=== PATIENT | female | born 1975 | race Caucasian/White ===

== ENCOUNTER 2024-05-23 19:17 | Outpatient (REF) | payer OTHER, BC, SELFPAY | END 2024-05-23 19:18 | disposition home or self-care (01) | LOC: LAB 19:17 | PROVIDERS: Visit Provider Physician Assistant | DX: Z01.419 Encounter for gynecological examination (general) (routine) without abnormal findings (principal) | CPT/HCPCS: 87624; 88175 ==

== ENCOUNTER 2025-01-12 08:01 | Outpatient (OUT) | payer OTHER, BC, SELFPAY ==
--- NOTE | 2025-01-12 | MM_ITS ---
Patient Name: KARYN LITTLE MR#: [id number] : 1975 Exam Date: 01/12/2025 Ordering Doctor: DR Marcelo Hough . RADIOLOGY REPORT PROCEDURE: MM TOMOSYNTHESIS SCREENING BI COMPARISON: MG MAMM MICHAEL DIAG W CAD DIG, 08/28/2013. INDICATIONS: Michael Screening Mammogram Calculator Name NCI Breast Cancer Risk Assessment Tool 5 Year Breast Cancer Risk 0.90% Lifetime Breast Cancer Risk 8.00% Personal Breast Cancer No Personal Ovarian Cancer No Treatments None Family Cancers Aunt-maternal with breast cancer at age ~39; Aunt-maternal with breast cancer at age ~38; Father with lung cancer at age 48; Mother with cervical cancer at age 37. LOCATION: [facility] BREAST COMPOSITION: The breasts are heterogeneously dense,which may obscure small masses. FINDINGS: RIGHT BREAST: No significant suspicious finding. LEFT BREAST: No significant suspicious finding. DIAGNOSTIC CATEGORY 1--NEGATIVE. RECOMMENDATIONS: ROUTINE MAMMOGRAM AND CLINICAL EVALUATION IN 12 MONTHS. PLEASE NOTE: A NORMAL MAMMOGRAM DOES NOT EXCLUDE THE POSSIBILITY OF BREAST CANCER. A CLINICALLY SUSPICIOUS PALPABLE LUMP SHOULD BE BIOPSIED. Dictated by: Zia Bear DO on 01/12/2025 at 16:06 Approved by: Zia Bear DO on 01/12/2025 at 16:10
== END 2025-01-12 08:02 | disposition home or self-care (01) ==
LOC: MAMMO 08:05
PROVIDERS: Visit Provider Obstetrics & Gynecology
DX: Z12.31 Encounter for screening mammogram for malignant neoplasm of breast (principal); Z80.3 Family history of malignant neoplasm of breast; Z80.1 Family history of malignant neoplasm of trachea, bronchus and lung; Z80.8 Family history of malignant neoplasm of other organs or systems
CPT/HCPCS: 77063; 77067

== ENCOUNTER 2025-06-11 20:15 | Outpatient (REF) | payer OTHER, BC, SELFPAY ==
--- OUTSIDE RECORDS SUMMARY | 2025-06-11 20:19 | XMS_ITS | CCD ---
Author Organization [facility] Care Team Providers [place] Lifeguard Name Role Phone FABIAN, DR NETO Leyva Admitting Unavailable WEST, DR NETO Leyva Attending Unavailable LUPE, DR MUÑOZ Primary Care Unavailable WEST, DR NETO Leyva Consulting Unavailable MARGARITA, DR YU Admitting Unavailable MARGARITA, DR YU Attending Unavailable LUPE, DR MUÑOZ Primary Care Unavailable MARGARITA, DR YU Consulting Unavailable MD Tylor Gilmore Attending Provider PADMINI ANDRADE Attending Unavailable TYLOR MERAZ Attending Unavailable PADMINI ANDRADE Referring Unavailable SERINA VICTORIA Attending Unavailable DEIRDRE Leyva, TYLOR Attending Unavailable Tylor Gilmore Attending Unavailable Tylor Gilmore Admitting Unavailable Padmini Andrade MD Primary Care Provider Johnathon Kurtz PA-C Primary Care Provider JOHNATHON KURTZ Attending Unavailable JOHNATHON KURTZ Primary Care Unavailable ZHANE UMANZOR Attending Unavailable JOHNATHON KURTZ Primary Care Unavailable JOHNATHON KURTZ Attending Unavailable JOHNATHON KURTZ Primary Care Unavailable Allergies Allergy Classification Reported Allergen(s) Allergy Type Date of Onset Reaction(s) Facility (1 source) Ibuprofen Drug Allergy 01-15-2017 [facility] Repository (4 sources) Ibuprofen; Translations: [IBUPROFEN] Drug Allergy 01-15-2017 [facility] Medications Current Medications Medication Drug Class(es) Dates Sig (Normalized) Sig (Original) 24 hr amphetamine aspartate 5 mg / amphetamine sulfate 5 mg / dextroamphetamine saccharate 5 mg / dextroamphetamine sulfate 5 mg extended release oral capsule (2 sources) Central Nervous System Stimulant Start: 04-03-2025 End: 06-02-2025 take 1 capsule by mouth once daily in the morning amphetamine-dextro amphetamine XR (Adderall XR) 20 mg 24 hr capsule Indications: Attention or concentration deficit Take 1 capsule (20 mg) by mouth once daily in the morning. Do not crush or chew. OARRS reviewed. Void script and RF 30 days from written date 30 capsule 05/03/2025 06/02/2025 Active busPIRone hydrochloride 5 mg oral tablet (3 sources) Start: 03-01-2025 take 1 tablet by mouth three times daily as needed for anxiety busPIRone (Buspar) 5 mg tablet Indications: Situational anxiety Take 1 tablet (5 mg) by mouth 3 times a day as needed (anxiety). 90 tablet 03/01/2025 Active Problems Active Problems Problem Classification Problem Date Documented Date Episodic/Chronic Administrative/social admission (1 source) First encounter by subject; Translations: [Persons encountering health services in other specified circumstances] 03-01-2025 Episodic Anxiety disorders (4 sources) Anxiety; Translations: [Other specified anxiety disorders] Onset: 03-01-2025 03-01-2025 Chronic Menopausal disorders (7 sources) Perimenopausal state; Translations: [Menopausal and female climacteric states] Onset: 03-09-2024 03-09-2024 Chronic Mood disorders (6 sources) Atypical depressive disorder; 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 03-06-2024 Chronic Other aftercare (2 sources) Patient encounter status; Translations: [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] 04-02-2025 Episodic Other aftercare (2 sources) Other prison (current) drug therapy; Translations: [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] Onset: 04-02-2025 Episodic Other nervous system disorders (2 sources) Disturbance of attention; Translations: [Attention and concentration deficit] 04-02-2025 Chronic Other nervous system disorders (2 sources) Attention and concentration deficit; Translations: [Attention and concentration deficit] Onset: 04-02-2025 Chronic Other nervous system disorders (1 source) Impaired cognition; Translations: [Other symptoms and signs involving cognitive functions and awareness] 03-01-2025 Episodic Past or Other Problems Problem Classification Problem Date Documented Da te Episodic/Chronic Immunizations and screening for infectious disease (1 source) Encounter for screening for human papillomavirus (HPV); Translations: [ENC SCREENING HUMAN PAPILLOMAVIRUS] Onset: 07-05-2022 Episodic Malaise and fatigue (2 sources) Fatigue; Translations: [Other fatigue] Onset: 03-09-2024 03-09-2024 Episodic Other gastrointestinal disorders (2 sources) Stool DNA-based colorectal cancer screening positive; Translations: [Other fecal abnormalities] Onset: 05-09-2024 05-09-2024 Episodic Other screening for suspected conditions (not mental disorders or infectious disease) (6 sources) Encounter for screening for malignant neoplasm of cervix; Translations: [Patient encounter status] Onset: 07-01-2022 Episodic Unclassified (1 source) Onset: 05-03-2025 05-03-2025 Results Test Name Value Interpretation Reference Range Facility DRUG MONITOR, THIAGO, QN, URI NEon 04-05-2025 Alphahydroxyalprazolam Negative Normal <25 [facility] Comment on above: Performed By: #### 3 9394, 77163, 25521, 44105, 84224, 63514, 26993, 39791 #### [facility] [place] [address] Roll Skinner: Tk Oneal MD Alphahydroxymidazolam Negative Normal <[address] [facility] Comment on above: Performed By: #### 3 9394, 10840, 54072, 87936, 79514, 60196, 78202, 32671 #### [facility] [place] [address] Roll Skinner: Tk Oneal MD Alphahydroxytriazolam Negative Normal <[address] [facility] Comment on above: Performed By: #### 3 9394, 93797, 82794, 34400, 35409, 62186, 77706, 57777 #### [facility] [place] [address] Roll Skinner: Tk Oneal MD Aminoclonazepam Negative Normal <25 [facility] Comment on above: Performed By: #### 3 9394, 73214, 51917, 39708, 38512, 37193, 19552, 85271 #### [facility] [address] Roll Skinner: Tk Oneal MD Benzodiazepines Comments Normal [facility] Comment on above: Result Comment: See LDT Notes Performed By: #### 3 9394, 37046, 04213, 44549, 99230, 14301, 11307, 79658 #### [facility] of [address] , [address] [place] [address] Roll Skinner: Tk Oneal MD Hydroxyethylflurazepam Negative Normal <50 [facility] Comment on above: Performed By: #### 3 9394, 15072, 41861, 29380, 43224, 80366, 33988, 29982 #### [facility] of [place] [address] Roll Skinner: Tk Oneal MD Lorazepam Negative Normal <50 [facility] Comment on above: Performed By: #### 3 9394, 12432, 79060, 05112, 60907, 97045, 43598, 30265 #### [facility] of [place] [address] Roll Skinner: Tk Oneal MD Nordiazepam Negative Normal <50 [facility] Comment on above: Performed By: #### 3 9394, 89551, 20890, 27710, 20473, 61641, 72953, 28794 #### [facility] of [place] [address] Roll Skinner: Tk Oneal MD Oxazepam Negative Normal <50 [facility] Comment on above: Performed By: #### 3 9394, 11360, 72940, 90357, 68032, 54000, 50592, 90052 #### [facility] [address] [place] [address] Roll Skinner: Tk Oneal MD Temazepam Negative Normal <50 [facility] Comment on above: Performed By: #### 3 9394, 07937, 72295, 61636, 20814, 10613, 17584, 47752 #### [facility] of [address], [address] [place] [address] Roll Skinner: Tk Oneal MD DRUG MONITOR, COCAINE METAB, W/CONF, URINEon 04-05-2025 Cocaine Metabolite Negative Normal <150 [facility] Comment on above: Performed By: #### 3 9394, 52274, 15028, 30274, 25437, 02903, 29295, 01573 #### [facility] of [place] [address] Roll Skinner: Tk Oneal MD DRUG MONITOR, FENTANYL, QN, URINEon 04-05-2025 Fentanyl Normal [facility] Comment on above: Performed By: #### 3 9394, 29177, 26686, 78480, 79043, 04315, 48938, 79139 #### [facility] of [place] [address] Roll Skinner: Tk Oneal MD Fentanyl Comments Normal [facility] Comment on above: Performed By: #### 3 9394, 28879, 60201, 68077, 85516, 46697, 32018, 60510 #### [facility] of [place] [address] Roll Skinner: Tk Oneal MD medMATCH Fentanyl Normal [facility] Comment on above: Performed By: #### 3 9394, 51567, 73570, 10164, 62146, 06887, 05032, 53030 #### [facility] of [place] [address] Roll Skinner: Tk Oneal MD medMATCH Norfentanyl Normal [facility] Comment on above: Performed By: #### 3 9394, 16295, 35246, 37756, 27959, 92832, 93809, 54891 #### [facility] of [place] [address] Roll Skinner: Tk Oneal MD Norfentanyl Normal [facility] Comment on above: Performed By: #### 3 9394, 93851, 73713, 22275, 55066, 64564, 47275, 91045 #### [facility] of [address] [place] [address] Roll Skinner: Tk Oneal MD DRUG MONITOR, HEROIN METAB, QN, URINEon 04-05-2025 6 Acetylmorphine Normal [facility] Comment on above: Performed By: #### 3 9394, 29525, 65899, 19046, 02076, 19895, 44211, 33512 #### [facility] of [place] [address] Roll Skinner: Tk Oneal MD Heroin Metab Comments Normal [facility] Comment on above: Performed By: #### 3 9394, 21065, 07515, 49613, 00853, 80567, 72329, 94824 #### [facility] of [place] [address] Roll Skinner: Tk Oneal MD medMATCH 6 Acetylmorph Normal [facility] Comment on above: Performed By: #### 3 9394, 00635, 05415, 85337, 27935, 68177, 95471, 28525 #### [facility] of [place] [address] Roll Skinner: Tk Oneal MD DRUG MONITOR, MARIJUANA META B, W/CONF, URINEon 04-05-2025 Marijuana Metabolite Negative Normal <20 [facility] Comment on above: Performed By: #### 3 9394, 28012, 98301, 49614, 75818, 14395, 18998, 62169 #### [facility] [place] [address] Roll Skinner: Tk Oneal MD DRUG MONITOR, METHADONE META B, QN, URINEon 04-05-2025 EDDP Negative Normal <100 [facility] Comment on above: Performed By: #### 3 9394, 55536, 70582, 60889, 30708, 62140, 92624, 46940 #### [facility] of [address], [address] [place] [address] Roll Skinner: Tk Oneal MD Methadone Negative Normal <100 [facility] Comment on above: Performed By: #### 3 9394, 84831, 20712, 68157, 21142, 27104, 19726, 71090 #### [facility] of [place] [address] Roll Skinner: Tk Oneal MD Methadone Comments Normal [facility] Comment on above: Result Comment: See LDT Notes Performed By: #### 3 9394, 30595, 10885, 02659, 82802, 29544, 36532, 88075 #### [facility] [place] [address] Roll Skinner: Tk Oneal MD DRUG MONITOR, OPIATES EXPAND ED, QN, URINEon 04-05-2025 Codeine Negative Normal <50 [facility] Comment on above: Performed By: #### 3 9394, 28740, 19125, 65034, 15705, 12652, 38267, 46722 #### [facility] of [place] [address] Roll Skinner: Tk Oneal MD Hydrocodone Negative Normal <50 [facility] Comment on above: Performed By: #### 3 9394, 12400, 74226, 46734, 06908, 11875, 52586, 10672 #### [facility] [place] [address] Roll Skinner: Tk Oneal MD Hydromorphone Negative Normal <50 [facility] Comment on above: Performed By: #### 3 9394, 66657, 83252, 02554, 11833, 85956, 66734, 80902 #### [facility] of [place] [address] Roll Skinner: Tk Oneal MD Morphine Negative Normal <50 [facility] Comment on above: Performed By: #### 3 9394, 94957, 38324, 53119, 68293, 19241, 49249, 92812 #### [facility] [place] [address] Roll Skinner: Tk Oneal MD Norhydrocodone Negative Normal <50 [facility] Comment on above: Performed By: #### 3 9394, 12204, 26934, 21695, 14445, 90612, 27513, 38453 #### [facility] of [address], [address] [place] [address] Roll Skinner: Tk Oneal MD Noroxycodone Negative Normal <50 [facility] Comment on above: Performed By: #### 3 9394, 05262, 16315, 71726, 89324, 67397, 87821, 03871 #### [facility] of [address], [address] [place] [address] Roll Skinner: Tk Oneal MD Opiates Comments Normal [facility] Comment on above: Result Comment: See LDT Notes Performed By: #### 3 9394, 87304, 89028, 45176, 22113, 99313, 92694, 43414 #### [facility] of [address], [address] [place] [address] Roll Skinner: Tk Oneal MD Oxycodone Negative Normal <50 [facility] Comment on above: Performed By: #### 3 9394, 25379, 99671, 50410, 41099, 86985, 91265, 42195 #### [facility] of [address], [address] [place] [address] Roll Skinner: Tk Oneal MD Oxycodone Comments Normal [facility] Comment on above: Result Comment: See LDT Notes Performed By: #### 3 9394, 43779, 42921, 15636, 81056, 77640, 58661, 46104 #### [facility] of [address], [address] [place] [address] Roll Skinner: Tk Oneal MD Oxymorphone Negative Normal <50 [facility] Comment on above: Performed By: #### 3 9394, 75034, 92126, 57029, 84232, 17968, 29246, 93980 #### [facility] of [address], [address] [place] [address] Roll Skinner: Tk Oneal MD DRUG MONITOR, PCP, W/CONF, U RINEon 04-05-2025 Phencyclidine Negative Normal <25 [facility] Comment on above: Performed By: #### 3 9394, 96732, 44226, 32069, 26054, 97446, 30620, 81190 #### [facility] of [address], [address] [place] [address] Roll Skinner: Tk Oneal MD DRUG MONITOR, TRAMADOL, QN, URINEon 04-05-2025 Desmethyltramadol Negative Normal <100 [facility] Comment on above: Performed By: #### 3 9394, 34688, 14162, 51335, 37086, 70552, 63659, 70994 #### [facility] of [place] [address] Roll Skinner: Tk Oneal MD Tramadol Negative Normal <100 [facility] Comment on above: Performed By: #### 3 9394, 85385, 48026, 15716, 44462, 66046, 16005, 14823 #### [facility] of [place] [address] Roll Skinner: Tk Oneal MD Tramadol Comments Normal [facility] Comment on above: Result Comment: See LDT Notes Performed By: #### 3 9394, 50364, 16244, 09846, 56391, 88453, 13043, 82968 #### [facility] of [place] [address] Roll Skinner: Tk Oneal MD DRUG MONITOR, ZOLPIDEM, QN, URINEon 04-05-2025 medMATCH Zolpidem Normal [facility] Comment on above: Performed By: #### 3 9394, 35595, 03847, 00370, 68143, 80583, 14647, 93587 #### [facility] of [address], [address] [place] [address] Roll Skinner: Tk Oneal MD medMATCH Zolpidem Metab Normal [facility] Comment on above: Performed By: #### 3 9394, 10545, 43829, 04785, 05426, 28641, 53247, 96468 #### [facility] of [place] [address] Roll Skinner: Tk Oneal MD Zolpidem Normal [facility] Comment on above: Performed By: #### 3 9394, 58165, 52559, 35005, 33682, 30499, 05949, 12020 #### [facility] of [address], [address] [place] [address] Roll Skinner: Tk Oneal MD Zolpiedy Comments Normal [facility] Comment on above: Performed By: #### 3 9394, 21835, 76898, 53500, 50031, 62761, 71890, 94689 #### [facility] of [place] [address] Roll Skinner: Tk Oneal MD Zolpidem Metabolite Normal [facility] Comment on above: Performed By: #### 3 9394, 37794, 30923, 20605, 01605, 41216, 94930, 68315 #### [facility] of [place] [address] Roll Skinner: Tk Oneal MD DRUG MONITOR,AMPHETAMINE, W/ CONF, URINEon 04-05-2025 Amphetamines Negative Normal <500 [facility] Comment on above: Performed By: #### 3 9394, 58717, 44075, 62154, 12565, 03607, 83387, 05354 #### [facility] of [address], [address] [place] [address] Roll Skinner: Tk Oneal MD DRUG MONITOR,BARBITURATE, W/ CONF, URINEon 04-05-2025 Barbiturates Negative Normal <300 [facility] Comment on above: Performed By: #### 3 9394, 08996, 80997, 88908, 61580, 35740, 37518, 06111 #### [facility] of [place] [address] Roll Skinner: Tk Oneal MD DRUG MONITORING TEMPLATEon 0 04-05-2025 Notes and Comments PRELIM Normal [facility] Comment on above: Result Comment: This drug testing is for medical treatment only. Analysis was performed as non-forensic testing and these results should be used only by healthcare providers to render diagnosis or treatment, or to monitor progress of medical conditions. LDT Notes: Confirmation tests were developed and their analytical performance characteristics have been determined by [facility]. It has not been cleared or approved by the FDA. This assay has been validated pursuant to the CLIA regulations and is used for clinical purposes. Healthcare Providers needing Interpretation assistance, please contact us at [phone] ( ) M-F, 8am to 10pm EST Performed By: #### 3 9394, 16938, 05869, 03003, 10684, 00619, 02044, 17303 #### [facility] [address], [address] [place] [address] Roll Skinner: Tk Oneal MD Patient Historical Report PENDING Normal [facility] Comment on above: Performed By: #### 3 9394, 47018, 79809, 49465, 04217, 66302, 21804, 67619 #### [facility] [address], [address] [place] [address] Roll Skinner: Tk Oneal MD SPECIMEN VALIDITY TEST PANEL on 04-05-2025 Creatinine [Mass/Vol] 156.8 mg/dL Normal > or = 20.0 [facility] Comment on above: Performed By: #### 3 9394, 10460, 07351, 75980, 23008, 02695, 31465, 83385 #### [facility] [address], [address] [place] [address] Roll Skinner: Tk Oneal MD Oxidant Negative Normal <200 [facility] Comment on above: Performed By: #### 3 9394, 88977, 87559, 64010, 46226, 47925, 58310, 89702 #### [facility] [address], [address] [place] [address] Roll Skinner: Tk Oneal MD pH (Bld) 7.2 [pH] Normal 4.5-9.0 [facility] Comment on above: Performed By: #### 3 9394, 02853, 12463, 75259, 76341, 44867, 64943, 62105 #### [facility] [address] [facility], [address] [place] [address] Roll Skinner: Tk Oneal MD MM TOMOSYNTHESIS SCREENING B Ion 01-12-2025 [place] [address] Mammography Report Signed Patient: KARYN LITTLE MR#: [id number] : 1975 Acct:[id number] Age/Sex: 49 / F ADM Date: 01/12/25 Loc: MAMMO Attending Dr: Marcelo Hough D.O. Ordering Physician: Marcelo Hough D.O. Results: Date of Service: 01/12/25 Follow Up: Procedure(s): MM tomosynthesis screening BI Accession Number(s): [id number] cc: Marcelo Hough D.O.; Physician,Non-Staff [place] Patient Name: KARYN LITTLE MR#: [id number] : 1975 Exam Date: 01/12/2025 Ordering Doctor: DR Marcelo Hough . RADIOLOGY REPORT PROCEDURE: MM TOMOSYNTHESIS SCREENING BI COMPARISON: MG MAMM BOAZ DIAG W CAD DIG, 08/28/2013. INDICATIONS: Boaz Screening Mammogram Calculator Name NCI Breast Cancer Risk Assessment Tool 5 Year Breast Cancer Risk 0.90% Lifetime Breast Cancer Risk 8.00% Personal Breast Cancer No Personal Ovarian Cancer No Treatments None Family Cancers Aunt-maternal with breast cancer at age 39; Aunt-maternal with breast cancer at age 38; Father with lung cancer at age 48; Mother with cervical cancer at age 37. LOCATION: [facility] BREAST COMPOSITION: The breasts are heterogeneously dense,which may obscure small masses. FINDINGS: RIGHT BREAST: No significant suspicious finding. LEFT BREAST: No significant suspicious finding. DIAGNOSTIC CATEGORY 1--NEGATIVE. RECOMMENDATIONS: ROUTINE MAMMOGRAM AND CLINICAL EVALUATION IN 12 MONTHS. PLEASE NOTE: A NORMAL MAMMOGRAM DOES NOT EXCLUDE THE POSSIBILITY OF BREAST CANCER. A CLINICALLY SUSPICIOUS PALPABLE LUMP SHOULD BE BIOPSIED. Dictated by: Zia Bear DO on 01/12/2025 at 16:06 Approved by: Zia Bear DO on 01/12/2025 at 16:10 Dictated By: Zia Bear D.O. Signed By: 01/12/25 161 DD/ 161 TD/TT: Filling Carrier: [facility] Radiology, Radiologist, MD - 01/12/2025 [place] [address] Mammography Report Signed Patient: KARYN LITTLE MR#: [id number] : 1975 Acct:[id number] Age/Sex: 49 / F ADM Date: 01/12/25 Loc: MAMMO Attending Dr: Marcelo Hough D.O. Ordering Physician: Marcelo Hough D.O. Results: Date of Service: 01/12/25 Follow Up: Procedure(s): MM tomosynthesis screening BI Accession Number(s): [id number] cc: Marcelo Hough D.O.; Physician,Non-Staff [place] Patient Name: KARYN LITTLE MR#: [id number] : 1975 Exam Date: 01/12/2025 Ordering Doctor: DR Marcelo Hoguh . RADIOLOGY REPORT PROCEDURE: MM TOMOSYNTHESIS SCREENING BI COMPARISON: MG MAMM BOAZ DIAG W CAD DIG, 08/28/2013. INDICATIONS: Boaz Screening Mammogram Calculator Name NCI Breast Cancer Risk Assessment Tool 5 Year Breast Cancer Risk 0.90% Lifetime Breast Cancer Risk 8.00% Personal Breast Cancer No Personal Ovarian Cancer No Treatments None Family Cancers Aunt-maternal with breast cancer at age 39; Aunt-maternal with breast cancer at age 38; Father with lung cancer at age 48; Mother with cervical cancer at age 37. LOCATION: [facility] BREAST COMPOSITION: The breasts are heterogeneously dense,which may obscure small masses. FINDINGS: RIGHT BREAST: No significant suspicious finding. LEFT BREAST: No significant suspicious finding. DIAGNOSTIC CATEGORY 1--NEGATIVE. RECOMMENDATIONS: ROUTINE MAMMOGRAM AND CLINICAL EVALUATION IN 12 MONTHS. PLEASE NOTE: A NORMAL MAMMOGRAM DOES NOT EXCLUDE THE POSSIBILITY OF BREAST CANCER. A CLINICALLY SUSPICIOUS PALPABLE LUMP SHOULD BE BIOPSIED. Dictated by: Zia Bear DO on 01/12/2025 at 16:06 Approved by: Zia Bear DO on 01/12/2025 at 16:10 Dictated By: Zia Bear D.O. Signed By: 01/12/251610 DD/ 09 TD/TT: Filling Carrier: [facility] Radiology Study observation (narrative) [facility] MM TOMOSYNTHESIS SCREENING B IOrdered By: Radiologist Radiology on 01-12-2025 [facility] Work Phone: PATHOLOGY REQUEST FOR LAB CO on 06-07-2024 PATHOLOGY REQUEST FOR LAB LIVE [facility] Comment on above: See report. Scanned copy available in EMR. PATHOLOGY GI SPECIMEN [facility] Pathology Request for Lab Co on 05-29-2024 Pathology Request for Lab Live Normal [facility] Comment on above: Order Comment: PATHO LOGY GI SPECIMEN Result Comment: See report. Scanned copy available in EMR. PERFORMED BY: [place] [address] PATHOLOGIST [employer] RAMY AMARAL M.D. Performed By: #### P ATH TO [facility] #### [address] PAP ACOG PANEL 2: 30 to 65on 07-08-2022 . . Normal [facility] Comment on above: Result Comment: Perf ormed at: WB Performed By: #### [id number] #### [facility] [address] [place] [address] Dr. Kerry Shaikh Age Gdln ACOG Testing 30-65 Normal [facility] Comment on above: Performed By: #### 4 [id number] #### [facility] [address] [place] [address] Dr. Kerry Shaikh DIAGNOSIS: Comment Normal [facility] Comment on above: Result Comment: NEGA TIVE FOR INTRAEPITHELIAL LESION OR MALIGNANCY. Performed at: WB Performed By: #### 4 [id number] #### [facility] [address] [place] [address] Dr. Kerry Shaikh HPV Aptima Negative Normal Negative [facility] Comment on above: Result Comment: This nucleic acid amplification test detects fourteen high-risk HPV types (16,18,31,33,35,39,45,51,52,56,58,59,66,68) without differentiation. Performed at: =G Performed By: #### 4 [id number] #### [facility] [address] [place] [address] Dr. Kerry Shaikh Methodology: Comment Normal [facility] Comment on above: Result Comment: This liquid based ThinPrep(R) pap test was screened with the use of an image guided system. Performed at: WB Performed By: #### [id number] #### [facility] [address] [place] [address] Dr. Kerry Shaikh Note: Comment Normal [facility] Comment on above: Result Comment: The Pap smear is a screening test designed to aid in the detection of premalignant and malignant conditions of the uterine cervix. It is not a diagnostic procedure and should not be used as the sole means of detecting cervical cancer. Both false-positive and false-negative reports do occur. . Performed at: WB Performed By: #### [id number] #### [facility] [address] [place] [address] Dr. Kerry Shaikh Performed by: Comment Normal [facility] Comment on above: Result Comment: Aletha Peralta, Body Care Manager (ASCP) Performed at: [facility] Performed By: [id number] #### [facility] [address] [place] [address] Dr. Kerry Shaikh Specimen adequacy: Comment Normal [facility] [place] Comment on above: Result Comment: Sati sfactory for evaluation. Endocervical and/or squamous metaplastic cells (endocervical component) are present. Performed at: [facility] Performed By: [id number] #### [facility] [address] [place] [address] Dr. Kerry Shaikh Vital Signs Date Time Vital Sign Value Performing Clinician Nalini stiles 05-03-2025 12:50-0400 Body height 160 cm Johnathon Kurtz PA-C Work Phone: [facility] 05-03-2025 12:50-0400 Body mass index (BMI) [Ratio] 24.62 kg/m2 Johnathon Kurtz PA-C Work Phone: [facility] 05-03-2025 12:50-0400 Body weight 63.05 kg Johnathon Pardoall PA-C Work Phone: [facility] 05-03-2025 12:50-0400 Diastolic blood pressure 78 mm[Hg] Johnathon Kurtz PA-C Work Phone: [facility] 05-03-2025 12:50-0400 Heart rate 92 /min Johnathon Kurtz PA-C Work Phone: [facility] 05-03-2025 12:50-0400 Systolic blood pressure 122 mm[Hg] Johnathon Kurtz PA-C Work Phone: [facility] 04-02-2025 09:52-0400 Body height 160 cm Zhane Umanzor MD Work Phone: [facility] 04-02-2025 09:52-0400 Body mass index (BMI) [Ratio] 23.56 kg/m2 Zhane Umanzor MD Work Phone: [facility] 04-02-2025 09:52-0400 Body weight 60.33 kg Zhane Umanzor MD Work Phone: [facility] 04-02-2025 09:52-0400 Diastolic blood pressure 80 mm[Hg] Zhane Umanzor MD Work Phone: [facility] 04-02-2025 09:52-0400 Heart rate 78 /min Zhane Umanzor MD Work Phone: [facility] 04-02-2025 09:52-0400 Systolic blood pressure 121 mm[Hg] Zhane Umanzor MD Work Phone: [facility] 03-01-2025 10:43-0400 Body height 160 cm Johnathon Kurtz PA-C Work Phone: [facility] 03-01-2025 10:43-0400 Body mass index (BMI) [Ratio] 23.21 kg/m2 Johnathon Kurtz PA-C Work Phone: [facility] 03-01-2025 10:43-0400 Body weight 59.42 kg Johnathon Kurtz PA-C Work Phone: [facility] 03-01-2025 10:43-0400 Diastolic blood pressure 84 mm[Hg] Johnathon Kurtz PA-C Work Phone: [facility] 03-01-2025 10:43-0400 Heart rate 73 /min Johnathon Kurtz PA-C Work Phone: [facility] 03-01-2025 10:43-0400 Systolic blood pressure 117 mm[Hg] Johnathon Kurtz PA-C Work Phone: [facility] Encounters Encounter Date Encounter Type Care Provider Facility Start: 05-03-2025 End: 05-03-2025 ambulatory [facility] Start: 05-03-2025 End: 05-03-2025 Office outpatient visit 25 minutes Johnathon Kurtz PA-C Work Phone: [facility] Comment on above: Attention or concent ration deficit (Primary Dx); Perimenopause; Situational anxiety; Medication management Start: 04-02-2025 End: 04-02-[facility] Start: 04-02-2025 End: 04-02-2025 Office outpatient visit 15 minutes Zhane Umanzor MD Work Phone: [facility] Comment on above: Attention or concent ration deficit (Primary Dx); Medication management Start: 03-01-2025 End: 03-01-2025 ambulatory [facility] Start: 03-01-2025 End: 03-01-2025 Office outpatient new 30 minutes Johnathon Kurtz PA-C Work Phone: [facility] Comment on above: Encounter to [facility] with new doctor (Primary Dx); Situational anxiety; Perimenopause; Atypical depressive disorder; Brain fog Start: 01-12-2025 End: 01-12-2025 Clinisync Result Encounter Marcelo France DO Work Phone: [facility] Unsolicited Start: 01-12-2025 End: 01-12-2025 Clinisync Result Encounter Marcelo France DO Work Phone: [facility] Unsolicited Start: 06-05-2024 End: 06-05-2024 ambulatory TYLOR GILMORE V Not Available Start: 05-29-2024 End: 06-27-2024 External Result Encounter Tylor Gilmore MD Work Phone: [facility] Unsolicited Start: 05-29-2024 End: 06-27-2024 External Result Encounter Tylor Leyva MD Work Phone: [facility] Unsolicited Start: 05-29-2024 End: 05-29-2024 ambulatory Tylor Gilmore [facility] Work Phone: Start: 05-29-2024 End: 05-29-2024 Departed Referred MD Tylor Gilmore Work Phone: [facility] [place] Work Phone: Start: 05-23-2024 End: 05-23-2024 ambulatory SERINA VICTORIA Not Available Start: 05-09-2024 End: 05-09-2024 ambulatory TYLOR GILMORE V Not Available Start: 03-09-2024 End: 03-09-2024 ambulatory PADMINI ANDRADE Not Available Start: 07-24-2022 End: 11-02-[address] NETO PERALTA Facility:[facility] Start: 07-01-2022 End: 07-01-[address] AIMEE AVILA Facility:[facility] Procedures Date Procedure Procedure Detail Performing Clinician Start: 01-12-2025 MM TOMOSYNTHESIS SCR EENING BI Marcelo Velozo DO Work Phone: Start: 01-12-2025 Mammography Marcelo Veloz o DO Work Phone: Start: 05-30-2024 Colonoscopy Tylor Leyva MD Work Phone: Start: 05-29-2024 PATHOLOGY REQUEST FO R LAB LIVE Tylor Gilmore MD Work Phone: Plan of Treatment Date Care Activity Detail Author Start: 05-30-2034 Screening for malign ant neoplasm of colon [facility] Start: 03-23-2027 Screening for malign ant neoplasm of colon [facility] Start: 2026 Zoster Vaccines (1 o f 2) Zoster Vaccines (1 of 2) [facility] Start: 07-04-2025 End: 07-04-2025 Patient encounter procedure 07/04/2025 2:40 PM EDT Office Visit [facility] [address] [place] [phone] Johnathon Kurtz PA-C [address] [place] [address] [facility] Start: 06-18-2025 Influenza vaccination [facility] Start: 05-28-2025 End: 05-28-2025 Patient encounter procedure 05/28/2025 11:00 AM EDT Office Visit [facility] BCP OB [address] [place] [id number] Serina Victoria PA [address] [address] [facility] OB Start: 05-24-2025 Yearly Adult Physical Yearly Adult P [facility] Start: 04-02-2025 End: 04-02-2025 Patient encounter procedure 04/02/2025 9:45 AM EDT Office Visit [facility] [address] [place] [phone] hZane Umanzor MD [address] [place] [address] [facility] Start: 06-18-2024 COVID-19 Vaccine ( season) COVID-19 Vaccine ( season) [facility] Start: 06-18-2024 Influenza vaccination Influenza Vacc ine (#1) [facility] Start: 2016 Screening for malign ant neoplasm of breast Mammogram [facility] Start: 2006 Screening for malign ant neoplasm of cervix [facility] Start: 1998 DTaP/Tdap/Td Vaccine s (1 - Tdap) DTaP/Tdap/Td Vaccines (1 - Tdap) [facility] Start: 1997 Screening for malign ant neoplasm of cervix [facility] Start: 1995 Hepatitis B Vaccines (1 of 3 - 19+ 3-dose series) Hepatitis B Vaccines (1 of 3 - 19+ 3-dose series) [facility] Start: 1994 Hepatitis C screening Hepatitis C [facility] Start: 1977 MMR Vaccines (1 of 1 - Standard series) MMR Vaccines (1 of 1 - Standard series) [facility] Start: 1976 HIV screening HIV Screening [facility] Start: 1976 Lipid panel Lipid Panel [facility] Start: 1976 Screening for malign ant neoplasm of colon [facility] Start: 1976 Yearly Adult Physical Yearly Adult P hysical [facility] Opiate/Opioid/Benzo Prescription Compliance Opiate/Opioid/Benzo Prescription Compliance Lab Routine Medication management Ordered: 04/02/2025 [facility] Service Area Work Phone: Comment on above: Ordered: 04/02/2025 Immunizations Immunization Date Immunization Notes Care Provider Fa valentety 11-25-2020 Pfizer Purple Cap SARS-CoV-2 Vaccination Tylor Leyva MD Work Phone: [facility] 11-04-2020 Pfizer Purple Cap SARS-CoV-2 Vaccination Tylor Leyva MD Work Phone: [facility] Healthcare Payers Date Payer Category Payer Blue Cross Blue [facility] Man[facility] Care [facility] [id number] 2024 Unknown [id number] 2024 Managed Care (Private) [facility] [id number] 2023 Private Health Insurance [id number] 2022 Blue Cross Blue [facility] [id number] 2022 Unknown BCBS BCBS [id number] [id number] 2022-Present [phone] [address] [place] [address] [id number] 2022 Unknown [id number] 1976 Unknown [id number] [id number] 1976 Unknown [id number]. [id number] 1976 Unknown [id number]. 2.1259 1976 Unknown [id number]. 2.1259 1976 Unknown [id number]. 2.1259 1976 Unknown [id number] [id number]. 2.1259 1976 Unknown [id number] [id number]. 2.1244 1976 Unknown [id number] [id number]. 2.1244 1976 Unknown [id number] 2.1244 1959 Private Health Insurance [id number] 1959 Self-pay Unknown [id number] [id number] Social History Date Type Detail Facility Tobacco smoking stat us NHIS Unknown if ever smoked [facility] Work Phone: Start: 1975 Sex Assigned At Female [facility] Start: 03-09-2024 End: 03-01-2025 Tobacco smoking status NHIS Never smoked tobacco [facility] Start: 03-09-2024 End: 03-01-2025 Tobacco use and exposure Smokeless tobacco non-user [facility] Start: 05-09-2024 End: 05-03-2025 Alcoholic beverage intake Ex-drinker (finding) [facility] Start: 03-08-2024 End: 03-01-2025 History of Social function [facility] Start: 03-08-2024 End: 03-01-2025 Social connection and isolation panel [facility] Do you belong to any clubs or organizations such as baptism groups, unions, fraternal or athletic groups, or school groups? Yes [facility] Are you now , , , , never or living with a partner? [facility] How often to you hav e a drink containing alcohol? Monthly or less [facility] How many standard dr inks containing alcohol do you have on a typical day? 1 or 2 [facility] How often do you hav e 6 or more drinks on 1 occasion? Never [facility] How hard is it for y ou to pay for the very basics like food, housing, medical care, and heating Somewhat hard [facility] Do you feel stress - tense, restless, nervous, or anxious, or unable to sleep at night because your mind is troubled all the time - these days [OSQ] To some extent [facility] (I/We) worried wheth er (my/our) food would run out before (I/we) got money to buy more. Never true [facility] Start: 02-26-2025 In the past 12 months, has lack of transportation kept you from medical appointments or from getting medications? No [facility] In the past 12 month s, was there a time when you were not able to pay the mortgage or rent on time? No [facility] Start: 1975 Sex assigned at Not on file [facility] Start: 02-19-2025 End: 03-01-2025 Exposure to SARS-CoV-2 (event) Not sure [facility] Functional Status Date Assessment Result Facility 05-03-2025 Patient Health Quest ionnaire 2 item (PHQ-2) [Reported] [facility] 03-01-2025 Patient Health Quest ionnaire 2 item (PHQ-2) [Reported] [facility] Work Phone: History of Present illness Narrative 05-03-2025 Johnathon Kurtz PA-C - 05/03/2025 12:40 PM EDT Note Date & Type Note Facility 05-03-2025 History of Present illness Narrative Subjective Patient ID: Karyn Little is a 49 y.o. female who presents for Follow-up (I MONTH F/U WITH MED CHECK) HPI Labs MAY 2024 with prior PCP - will get copies and bring in states Believes everything was WNL Believes she had the following checked CBC CMP Thyroid Lipid She is unsure if iron panel was done - consider with next set of labs given her symptoms Consider repeat labs in 1-2 years - sooner pending symptoms Med check - typically not taking anything other than tylenol or vitamin on occasion ADD - started on adderall with MMT and doing very well and much more focused ZHEN - on buspar She is post menopausal - 3 years without a period. Consider some of the symptoms are post menopausal symptoms although she denies the hot flashes and typical symptoms with post menopause. She will further discuss with her [employer] at her next visit in a mo if still concerns Preventative testing [employer] /PAP - scheduled in jun Mammo - December 2024 Colonoscopy may 2024- repeat in 5-10 years DEXA Fall -NEG FEBRUARY 2025 PHQ2 - score of 1 - NEG FEBRUARY 2025 [facility]: Johnathon Kurtz PA-C on 05/03/2025 12:58 PM I have personally reviewed the [facility] report for Karyn Little. I have considered the risks of abuse, dependence, addiction and diversion and I believe that it is clinically appropriate for Karyn Little to be prescribed this medication Is the patient prescribed a combination of a benzodiazepine and opioid? No Last Urine Drug Screen / ordered today: No Recent Results (from the past 8760 hours) Opiate/Opioid/Benzo Prescription Compliance Collection Time: 04/02/25 10:18 AM Result Value Ref Range Creatinine 156.8 > or = 20.0 mg/dL pH 7.2 4.5 - 9.0 Oxidant NEGATIVE <200 mcg/mL Amphetamines NEGATIVE <500 ng/mL Barbiturates NEGATIVE <300 ng/mL Cocaine Metabolite NEGATIVE <150 ng/mL Marijuana Metabolite NEGATIVE <20 ng/mL Phencyclidine NEGATIVE <25 ng/mL Alphahydroxyalprazolam NEGATIVE <25 ng/mL Alphahydroxymidazolam NEGATIVE <50 ng/mL Alphahydroxytriazolam NEGATIVE <50 ng/mL Aminoclonazepam NEGATIVE <25 ng/mL Hydroxyethylflurazepam NEGATIVE <50 ng/mL Lorazepam NEGATIVE <50 ng/mL Nordiazepam NEGATIVE <50 ng/mL Oxazepam NEGATIVE <50 ng/mL Temazepam NEGATIVE <50 ng/mL Benzodiazepines Comments Fentanyl NEGATIVE <0.5 ng/mL Norfentanyl NEGATIVE <0.5 ng/mL Fentanyl Comments 6 Acetylmorphine NEGATIVE <10 ng/mL Heroin Metab Comments EDDP NEGATIVE <100 ng/mL Methadone NEGATIVE <100 ng/mL Methadone Comments Codeine NEGATIVE <50 ng/mL Hydrocodone NEGATIVE <50 ng/mL Hydromorphone NEGATIVE <50 ng/mL Morphine NEGATIVE <50 ng/mL Norhydrocodone NEGATIVE <50 ng/mL Opiates Comments Noroxycodone NEGATIVE <50 ng/mL Oxycodone NEGATIVE <50 ng/mL Oxymorphone NEGATIVE <50 ng/mL Oxycodone Comments Desmethyltramadol NEGATIVE <100 ng/mL Tramadol NEGATIVE <100 ng/mL Tramadol Comments Zolpidem NEGATIVE <5 ng/mL Zolpidem Metabolite NEGATIVE <5 ng/mL Zolpidem Comments Notes and Comments Results are as expected. Controlled Substance Agreement: Date of the Last Agreement: 04/02/2025 Reviewed Controlled Substance Agreement including but not limited to the benefits, risks, and alternatives to treatment with a Controlled Substance medication(s). Problem List[1] Review of Systems Constitutional: Negative for chills, fatigue and fever. HENT: Negative for congestion, rhinorrhea, sinus pain, sore throat and tinnitus. Eyes: Negative for discharge, redness and visual disturbance. Respiratory: Negative for cough, chest tightness, shortness of breath and wheezing. Cardiovascular: Negative for chest pain, palpitations and leg swelling. Gastrointestinal: Negative for abdominal pain, constipation, diarrhea, nausea and vomiting. Endocrine: Negative for cold intolerance and heat intolerance. Genitourinary: Negative for flank pain, frequency and urgency. Musculoskeletal: Negative for back pain, gait problem and neck pain. Skin: Negative for rash and wound. Neurological: Negative for dizziness, tremors, syncope, numbness and headaches. Hematological: Does not bruise/bleed easily. Psychiatric/Behavioral: Positive for decreased concentration. Negative for confusion, sleep disturbance and suicidal ideas. Medical History[2] Surgical History[3] Family History[4] Social History[5] Allergies[6] Current Medications[7] Objective BP 122/78 Pulse 92 Ht 1.6 m (5' 3 ) Wt 63 kg (139 lb) BMI 24.62 kg/m Physical Exam Vitals reviewed. Constitutional: Appearance: Normal appearance. She is normal weight. HENT: Head: Normocephalic. Right Ear: External ear normal. Left Ear: External ear normal. Nose: Nose normal. No congestion or rhinorrhea. Mouth/Throat: Mouth: Mucous membranes are moist. Eyes: Extraocular Movements: Extraocular movements intact. Conjunctiva/sclera: Conjunctivae normal. Pupils: Pupils are equal, round, and reactive to light. Cardiovascular: Rate and Rhythm: Normal rate and regular rhythm. Pulses: Normal pulses. Pulmonary: Effort: Pulmonary effort is normal. Breath sounds: Normal breath sounds. Abdominal: General: Bowel sounds are normal. Palpations: Abdomen is soft. Tenderness: There is no abdominal tenderness. There is no right CVA tenderness or left CVA tenderness. Musculoskeletal: General: No tenderness. Normal range of motion. Cervical back: Normal range of motion and neck supple. No tenderness. Skin: General: Skin is warm and dry. Neurological: General: No focal deficit present. Mental Status: She is alert and oriented to person, place, and time. Psychiatric: Mood and Affect: Mood normal. Behavior: Behavior normal. Testing Will see if we can get records U tox - approp and reviewed Consider repeat labs as discussed in 1-2 years or sooner pending symptoms Impression MDM 1) COMPLEXITY: MORE THAN 1 STABLE CHRONIC CONDITION ADDRESSED 2)DATA: TESTS INTERPRETED AND OR ORDERED, TOOK INDEPENDENT HISTORY OR RECORDS REVIEWED 3)RISK: MODERATE RISK DUE TO NATURE OF MEDICAL CONDITIONS/COMORBIDITY OR MEDICATIONS ORDERED OR SURGICAL OR PROCEDURE REFERRAL, . Reviewed labs and Testing on file Patient to follow diet low in cholesterol, fat, and sodium. Patient is advised to increase Exercise. Patient is recommended to lose weight. Reviewed Meds and discussed common side effects Continue as directed Patient is strongly advised to be compliant with recommendations. Return to Clinic sooner if needed. Patient denies further questions/concerns at this time Assessment/Plan Problem List Items Addressed This Visit ICD-10-CM Perimenopause N95.1 Other Visit Diagnoses Codes Attention or concentration deficit - Primary R41.840 Relevant Medications amphetamine-dextroamphetamine XR (Adderall XR) 20 mg 24 hr capsule Situational anxiety F41.8 Medication management Z79.899 FU in 2 mo with med check [1] Patient Active Problem List Diagnosis Perimenopause Atypical depressive disorder [2] Past Medical History: Diagnosis Date ADHD (attention deficit hyperactivity disorder) Anxiety Asthma 1979 [3] Past Surgical History: Procedure Laterality Date ADENOIDECTOMY CERVICAL BIOPSY W/ LOOP ELECTRODE EXCISION COLONOSCOPY 05/30/2024 [facility] - SIGMOID POLYP. REPEAT 5-10 YEARS DILATION AND CURETTAGE OF UTERUS TONSILLECTOMY [4] Family History Problem Relation Name Age of Onset Hypertension Mother 30 - 39 Hyperlipidemia Mother 30 - 39 Lung cancer Father 48 Heart disease Maternal Grandmother 40 - 49 Heart disease Maternal Grandfather 30 - 39 Heart disease Paternal Grandmother Heart disease Paternal Grandfather Cancer Father Rodrigue Arizmendi 40 - 49 [5] Social History Tobacco Use Smoking status: Never Smokeless tobacco: Never Vaping Use Vaping status: Never Used Substance Use Topics Alcohol use: Not Currently Drug use: Never [6] Allergies Allergen Reactions Ibuprofen Hives [7] Current Outpatient Medications Medication Sig Dispense Refill amphetamine-dextroamphetamine XR (Adderall XR) 20 mg 24 hr capsule Take 1 capsule (20 mg) by mouth once daily in the morning. Do not crush or chew. 30 capsule 0 busPIRone (Buspar) 5 mg tablet Take 1 tablet (5 mg) by mouth 3 times a day as needed (anxiety). 90 tablet 0 No current facility-administered medications for this visit. documented in this encounter [facility] Work Phone: History of Present illness Narrative 04-02-2025 Zhane Umanzor MD - 04/02/2025 9:45 AM EDT Note Date & Type Note Facility 04-02-2025 History of Present illness Narrative Subjective Patient ID: Karyn Little is a 49 y.o. female who presents for Follow-up (Discuss starting adhd medication). Problem with concentration and focusing Getting worse Affecting performance at work One kid has probably ADD Review of Systems Constitutional: Negative. Negative for chills and fever. HENT: Negative. Negative for congestion. Eyes: Negative. Negative for discharge. Respiratory: Negative. Negative for cough, shortness of breath and wheezing. Cardiovascular: Negative. Negative for chest pain, palpitations and leg swelling. Gastrointestinal: Negative. Negative for abdominal distention, abdominal pain, constipation, diarrhea, nausea and vomiting. Endocrine: Negative. Genitourinary: Negative. Negative for dysuria and urgency. Musculoskeletal: Negative. Negative for back pain, joint swelling and neck stiffness. Skin: Negative. Negative for rash. Allergic/Immunologic: Negative. Negative for immunocompromised state. Neurological: Negative. Negative for light-headedness, numbness and headaches. Hematological: Negative. Negative for adenopathy. Psychiatric/Behavioral: Positive for decreased concentration. Negative for agitation, behavioral problems, confusion and dysphoric mood. The patient is not nervous/anxious and is not hyperactive. All other systems reviewed and are negative. Objective Physical Exam Vitals reviewed. Constitutional: General: She is not in acute distress. Appearance: Normal appearance. HENT: Head: Normocephalic and atraumatic. Nose: Nose normal. Eyes: Conjunctiva/sclera: Conjunctivae normal. Pupils: Pupils are equal, round, and reactive to light. Neck: Vascular: No carotid bruit. Cardiovascular: Rate and Rhythm: Normal rate and regular rhythm. Pulses: Normal pulses. Heart sounds: No gallop. Pulmonary: Effort: Pulmonary effort is normal. No respiratory distress. Breath sounds: Normal breath sounds. No wheezing. Abdominal: General: Bowel sounds are normal. Palpations: Abdomen is soft. Tenderness: There is no abdominal tenderness. Musculoskeletal: General: Normal range of motion. Cervical back: Normal range of motion. No rigidity. Lymphadenopathy: Cervical: No cervical adenopathy. Skin: General: Skin is warm. Findings: No rash. Neurological: General: No focal deficit present. Mental Status: She is alert and oriented to person, place, and time. Psychiatric: Mood and Affect: Mood normal. Behavior: Behavior normal. BP 121/80 (BP Location: Right arm, Patient Position: Sitting) Pulse 78 Ht 1.6 m (5' 3 ) Wt 60.3 kg (133 lb) BMI 23.56 kg/m No results found for: CBCDIF , CMPLAS , PSA , LASA , HGBA1C Assessment/Plan Problem List Items Addressed This Visit None Visit Diagnoses Attention or concentration deficit - Primary Medication management Relevant Orders Opiate/Opioid/Benzo Prescription Compliance O[facility] HAS BEEN REVIEWED AND IS CONSISTENT WITH PRESCRIBED MEDICATIONS, CONSIDERED THE RISK OF ABUSE, DEPENDENCE, ADDICTION AND DIVERSION, MEDICATION IS FELT TO BE CLINICALLY APPROPRIATE ON THE DOCUMENTED DIAGNOSIS Had recent bw, all normal per pt Utox and contract done If utox- will release adderall Fu 1 mo documented in this encounter [facility] Work Phone: History of Present illness Narrative 03-01-2025 Johnathon Kurtz PA-C - 03/01/2025 10:20 AM EDT Note Date & Type Note Facility 03-01-2025 History of Present illness Narrative Subjective Patient ID: Karyn Little is a 49 y.o. female who presents for New Patient Visit (NEW PATIENT TO ESTABLISH. C/O BRAIN FOG AND DECREASED INTEREST IN DOING THINGS. NO MENSES X 3 YEARS. ) HPI Est as new patient Labs MAY 2024 with prior PCP - will get copies and bring in states Believes everything was WNL Believes she had the following checked CBC CMP Thyroid Lipid She is unsure if iron panel was done - consider with next set of labs given her symptoms Med check - typically not taking anything other than tylenol or vitamin on occasion Off symptoms x 1 year? Brain fog and decreased interest in doing things She admits to every day norm anxiety and depression but doesn't feel like this is more than norm and hesitant to think that this is the cause of her symptoms. She notes hx of divorce years ago and raising 4 children has been challenging but her youngest is 17 and they are all doing well. 3 children do live with her still so denies any empty nest syndrome. She is a new grandmother now as well In the past with what she has been through she has tried a few different meds Zoloft - she thinks she tried but cannot remember Lexaro -tired Wellbutrin - no relief She denies trying buspar She is post menopausal - 3 years without a period. Consider some of the symptoms are post menopausal symptoms although she denies the hot flashes and typical symptoms with post menopause. 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 She works in the [employer] and states some of the other [employer]PER[employer] there have talked with her about her symptoms and question and undiagnosed ADD. I have encouraged her to schedule a visit with Dr Umanzor to further discuss and consider trial of med if he feels is approp Preventative testing [employer] BUIL[employer] /PAP - scheduled in jun Mammo - December 2024 Colonoscopy may 2024- repeat in 5-10 years DEXA Fall -NEG FEBRUARY 2025 PHQ2 - score of 1 - NEG FEBRUARY 2025 Problem List[1] Review of Systems Constitutional: Positive for fatigue. Negative for chills and fever. HENT: Negative for congestion, rhinorrhea, sinus pain, sore throat and tinnitus. Eyes: Negative for discharge, redness and visual disturbance. Respiratory: Negative for cough, chest tightness, shortness of breath and wheezing. Cardiovascular: Negative for chest pain, palpitations and leg swelling. Gastrointestinal: Negative for abdominal pain, constipation, diarrhea, nausea and vomiting. Endocrine: Negative for cold intolerance and heat intolerance. Genitourinary: Negative for flank pain, frequency and urgency. Musculoskeletal: Negative for back pain, gait problem and neck pain. Skin: Negative for rash and wound. Neurological: Negative for dizziness, tremors, syncope, numbness and headaches. Hematological: Does not bruise/bleed easily. Psychiatric/Behavioral: Positive for decreased concentration and dysphoric mood. Negative for confusion, sleep disturbance and suicidal ideas. The patient is nervous/anxious. Medical History[2] Surgical History[3] Family History[4] Social History[5] Allergies[6] Current Medications[7] Objective BP 117/84 Pulse 73 Ht 1.6 m (5' 3 ) Wt 59.4 kg (131 lb) BMI 23.21 kg/m Physical Exam Vitals reviewed. Constitutional: Appearance: Normal appearance. She is normal weight. HENT: Head: Normocephalic. Right Ear: External ear normal. Left Ear: External ear normal. Nose: Nose normal. No congestion or rhinorrhea. Mouth/Throat: Mouth: Mucous membranes are moist. Eyes: Extraocular Movements: Extraocular movements intact. Conjunctiva/sclera: Conjunctivae normal. Pupils: Pupils are equal, round, and reactive to light. Cardiovascular: Rate and Rhythm: Normal rate and regular rhythm. Pulses: Normal pulses. Pulmonary: Effort: Pulmonary effort is normal. Breath sounds: Normal breath sounds. Abdominal: General: Bowel sounds are normal. Palpations: Abdomen is soft. Tenderness: There is no abdominal tenderness. There is no right CVA tenderness or left CVA tenderness. Musculoskeletal: General: No tenderness. Normal range of motion. Cervical back: Normal range of motion and neck supple. No tenderness. Skin: General: Skin is warm and dry. Neurological: General: No focal deficit present. Mental Status: She is alert and oriented to person, place, and time. Psychiatric: Mood and Affect: Mood normal. Behavior: Behavior normal. Testing Will get a copy of her labs done in 2023 Discussed consider repeat labs at the year geoffrey or sooner pending symptoms Consider need for iron panel with symptoms Impression MDM Reviewed labs and Testing on file Patient to follow diet low in cholesterol, fat, and sodium. Patient is advised to increase Exercise. Patient is recommended to lose weight. Reviewed Meds and discussed common side effects Continue as directed Mood - trial with buspar but if little relief to scheduled visit with to further discuss possible ADD Patient is strongly advised to be compliant with recommendations. Return to Clinic sooner if needed. 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 No pertinent past medical history. [3] Past Surgical History: Procedure Laterality Date ADENOIDECTOMY CERVICAL BIOPSY W/ LOOP ELECTRODE EXCISION COLONOSCOPY 05/30/2024 [facility] - SIGMOID POLYP. REPEAT 5-10 YEARS DILATION AND CURETTAGE OF UTERUS TONSILLECTOMY [4] Family History Problem Relation Name Age of Onset Hypertension Mother Hyperlipidemia Mother Lung cancer Father 48 Heart disease Maternal Grandmother Heart disease Maternal Grandfather Heart disease Paternal Grandmother Heart disease Paternal Grandfather [5] Social History Tobacco Use Smoking status: Never Smokeless tobacco: Never Vaping Use Vaping status: Never Used Substance Use Topics Alcohol use: Not Currently Drug use: Never [6] Allergies Allergen Reactions Ibuprofen Hives [7] No current outpatient medications on file. No current facility-administered medications for this visit. documented in this encounter [facility] Work Phone: Evaluation note Note Date & Type Note Facility Evaluation note [facility] Evaluation note Note Date & Type Note Facility Evaluation note Diagnosis Encounter to establish care with new doctor- Primary Situational anxiety Perimenopause Symptomatic menopausal or female climacteric states Atypical depressive disorder Brain fog documented in this encounter [facility] Work Phone: Evaluation note Note Date & Type Note Facility Evaluation note Diagnosis Attention or concentration deficit- Primary Medication management documented in this encounter [facility] Work Phone: Evaluation note Note Date & Type Note Facility Evaluation note Diagnosis Attention or concentration deficit- Primary Perimenopause Symptomatic menopausal or female climacteric states Situational anxiety Medication management documented in this encounter [facility] Work Phone: Summary Purpose Family History No Family History Records FoundNo Family History Records FoundNo Family History Records FoundNo Family History Records FoundNo Family History Records Found Advance Directives No Advanced Directives Records Found Advance Directive Response Recorded Date/ Time Advance Directives No May 29, 2024 7:33pm Chief Complaint and Reason for Visit Chief Complaint R19.5 Additional Source Comments INFORMATION SOURCE (unrecogn ized section and content) DATE CREATED AUTHOR 11/01/2022 [facility] DATE CREATED AUTHOR AUTHOR'S ORGANIZ ATION 06/05/2024 [facility] EPIC DATE CREATED AUTHOR AUTHOR'S ORGANIZ ATION 06/08/2024 [facility] DATE CREATED AUTHOR AUTHOR'S ORGANIZ ATION 04/05/2025 [facility] DATE CREATED AUTHOR AUTHOR'S ORGANIZ ATION 05/30/2025 [facility] [employer] Teams (unrecognized sec tion and content) Team Status: Inactive Member Role Status Dates Tylor Gilmore MD Attending Provider Active Sta rt: May 29, 2024 End: May 29, 2024 [employer] Relationship Specialty Start Date End Date Padmini Andrade MD [address] [facility] [address] [place] [address] PCP - General Family Medicine 03/10/24 [employer] Relationship Specialty Start Date End Date Padmini Andrade MD [address] [facility] [address] [place] [address] PCP - General Family Medicine 03/10/24 [employer] Relationship Specialty Start Date End Date Johnathon Kurtz PA-C [address] [place] [address] PCP - General Internal Medicine 03/01/25 [employer] Relationship Specialty Start Date End Date Johnathon Kurtz PA-C [address] [place] [address] PCP - General Internal Medicine 03/01/25 [employer] Relationship Specialty Start Date End Date Johnathon Kurtz PA-C [address] [place] [address] PCP - General Internal Medicine 03/01/25 Goals (unrecognized section and content) Goals may be documented in a n alternate section Reason for Visit (unrecogniz ed section and content) Reason Comments New Patient Visit NEW PATIENT TO GEN [facility]INE[facility]. C/O BRAIN FOG AND DECREASED INTEREST IN DOING THINGS. NO MENSES X 3 YEARS. Reason Comments Follow-up Discuss starting adh d medication Reason Comments Follow-up I MONTH F/U WITH MED CHECK FOR RECORDS PERTAINING TO PATIENTS WHO ARE OR HAVE BEEN ENROLLED IN A CHEMICAL DEPENDENCY/SUBSTANCEABUSE PROGRAM, SOME INFORMATION MAY BE OMITTED. This clinical summary was aggregated from multiple sources. Caution should be exercised in using it in the provision of clinical care. This summary normalizes information from multiple sources, and as a consequence, information in this document may materially change the coding, format and clinical context of patient data. In addition, data may be omitted in some cases. CLINICAL DECISIONS SHOULD BE BASED ON THE PRIMARY CLINICAL RECORDS. [employer] provides no warranty or guarantee of the accuracy or completeness of information in this document.
[2025-06-19 13:07] LABS: Age Gdln ACOG Testing Note (.); IGP, Aptima HPV, rfx 16/18,45 Note (.)
== END 2025-06-11 20:16 | disposition home or self-care (01) ==
LOC: LAB 20:15
PROVIDERS: Visit Provider Physician Assistant
DX: Z01.419 Encounter for gynecological examination (general) (routine) without abnormal findings (principal)
CPT/HCPCS: 87624; 88175